=== PATIENT | female | born 1965 | race Caucasian/White ===

== ENCOUNTER → 2018-03-07 | Outpatient (CLI) | payer BC ==
--- NOTE | 2018-03-23 08:20 | Diagnostic Imaging Report ---
#[id number] - [id number] #BILATERAL DIGITAL SCREENING MAMMOGRAM WITH CAD: 03/07/2018 CLINICAL: Routine screening. No prior exams were available for comparison. Current study contains 4 films. The tissue of both breasts is heterogeneously dense. This may lower the sensitivity of mammography. Current study was also evaluated with a Computer Aided Detection (CAD) system. There are benign calcifications in both breasts. There also are benign lymph nodes in both breasts. No significant masses, calcifications, or other findings are seen in either breast. IMPRESSION: BENIGN There is no mammographic evidence of malignancy. A 1 year screening mammogram is recommended. The patient will be notified by letter of the results. Garrison lopez/itz:03/22/2018 08:07:36 Health Care Social Worker: Viktoriya NAVARRO(R)(M), [facility] letter sent: Normal Exam Mammogram BI-RADS: 2 Benign
== END ==
LOC: MAMMO 08:51
PROVIDERS: ATTEND Internal Medicine
DX: Z12.31 Encounter for screening mammogram for malignant neoplasm of breast (principal)
CPT/HCPCS: 77067

== ENCOUNTER → 2020-09-25 | Outpatient (CLI) | payer BC | LOC: MAMMO 09:10 | PROVIDERS: ATTEND Internal Medicine | DX: Z12.31 Encounter for screening mammogram for malignant neoplasm of breast (principal) | CPT/HCPCS: 77067 ==